=== PATIENT | male | born 1945 | race Caucasian/White ===

== ENCOUNTER 2025-08-05 16:19 | Emergency (ER) | payer OTHER, SELFPAY ==
--- OUTSIDE RECORDS SUMMARY | 2024-03-22 07:15 | XMS_ITS ---
Author Organization [facility] Address [address] [place] [address] Care Team Providers Care Heel Gummer Name Role Phone Sheldon Hansen MD Primary Care Provider Unavail able Jody Leon Unavailable [phone] Vieira Encounters Encounter Location Date Provider Diagnosis [facility] [address] [place] [address] 03/22/2024 Jody Leon Plan Of Treatment Next Appt Details Provider Name:Jody harman, 08/26/2025 11:30:00 AM, [address] [place], [address], Progress Notes * Art OLSON RDOB:1945 (80 yo M)Acc No.[id number]:03/22/2024 Progress Note Patient: Art SANCHEZ Provider: Dar Leon DPM :1945 A ge:78 Y S ex:Male Date:03/22/2024 Address:[address] [place] [address] Pcp:Sheldon Hansen MD Subjective: * Chief Complaints: * [address] Vieira. * Medical History: Objective: * Vitals: Assessment: Plan: * Treatment: * Images: * The named appointment provid er may or may not be the originator of this progress note, and it is not deemed complete until electronically signed by the appointment provider. Sign off status: Pending * Provider: Dar Leon DPM Date: 0 03/22/2024 Generated for Maria Elena sumner/Cristiana/Silvestre on: 1 10/05/2024 05:33 PM EST
--- OUTSIDE RECORDS SUMMARY | 2024-03-29 06:15 | XMS_ITS ---
Author Organization [facility] Address [address] [place] [address] Care Team Providers Care Incinerator Operator Name Role Phone Sheldon Hansen MD Primary Care Provider Unavail able Jody Leon Unavailable [phone] Medications Medication SIG (Take, Route, Frequency, Duration) Notes Start Date End Date Status Ipratropium [place] 0.03 % 2 sprays in e ach nostril Nasally Twice a day; Duration: 30 day(s) 09/19/2023 Active Acetaminophen ER 650 MG 2 tablets as nee ded Orally every 8 hrs 09/19/2023 Active Thera-Gesic 09/19/2023 Active Multivitamin - 1 tablet Orally Once a day; Duration: 30 day(s) 09/19/2023 Active Tamsulosin HCl 0.4 MG Oral; Duration: 90 Days Active Aspirin 81 MG 1 tablet Orally Once a day; Duration: 30 day(s) 09/19/2023 Active Lisinopril 10 MG Oral; Duration: 90 Days Active Omeprazole 20 MG Oral; Duration: 90 Days Active Atorvastatin Calcium 40 MG 1 tablet Oral ly Once a day; Duration: 30 day(s) 09/19/2023 Active Encounters Encounter Location Date Provider Diagnosis [facility] [address] [place] [address] 03/29/2024 Jody Leon Plan Of Treatment Next Appt Details Provider Name:Jody harman, 08/26/2025 11:30:00 AM, [address] [place], [address], Progress Notes * Art OLSON RDOB:1945 (80 yo M)Acc No.[id number]:03/29/2024 Progress Note Patient: Art SANCHEZ Provider: Dar Leon DPM :1945 A ge:79 Y S ex:Male Date:03/29/2024 Address:[address] [place], [place] [id number] Pcp:Sheldon Hansen MD Subjective: * Chief Complaints: * * HPI: P ainful Nails: Pt States Last PCP Visit: D ate: 1 * Medical History: * Medications: T aking Atorvastatin Calcium 40 MG Tablet 1 tablet Orally Once a day , Taking Lisinopril 10 MG Tablet Oral , Taking Omeprazole 20 MG Capsule Delayed Release Oral , Taking Aspirin 81 MG Tablet Chewable 1 tablet Orally Once a day , Taking Multivitamin - Tablet 1 tablet Orally Once a day , Taking Tamsulosin HCl 0.4 MG Capsule Oral , Taking Acetaminophen ER 650 MG Tablet Extended Release 2 tablets as needed Orally every 8 hrs , Taking Thera-Gesic , Taking Ipratropium [place] 0.03 % Solution 2 sprays in each nostril Nasally Twice a day Objective: * Vitals: Assessment: Plan: * Treatment: * Images: * The named appointment provid er may or may not be the originator of this progress note, and it is not deemed complete until electronically signed by the appointment provider. Sign off status: Pending * Provider: Dar Leon DPM Date: 0 03/29/2024 Generated for Maria Elena sumner/Cristiana/Silvestre on: 10/05/2024 05:33 PM EST History and Physical Notes * HPI (History of Present Illness) Category Sub-Category Detail Notes Category Not es Painful Nails Pt States Last PCP Visit: Date:: 07/04/2023
--- OUTSIDE RECORDS SUMMARY | 2024-06-19 08:30 | XMS_ITS ---
Author Organization [facility] Address [address] [place] [address] Care Team Providers Care Prop Attendant Name Role Phone Sheldon Hansen MD Primary Care Provider Unavail Jody Aguilar Unavailable [phone] Encounters Encounter Location Date Provider Diagnosis [address] [address] 06/19/2024 Jody Leon Plan Of Treatment Next Appt Details Provider Name:Jody harman, 08/26/2025 11:30:00 AM, [address] [place] [address], [address], Progress Notes * Art OLSON RDOB:1945 (80 yo M)Acc No.[id number]:06/19/2024 Progress Note Patient: Art SANCHEZ Provider: Dar Leon DPM :1945 A ge:79 Y S ex:Male Date:06/19/2024 Address:[address] [place] [address] Pcp:Sheldon Hansen MD Subjective: * Chief Complaints: * * Medical History: Objective: * Vitals: Assessment: Plan: * Treatment: * Images: * The named appointment provid er may or may not be the originator of this progress note, and it is not deemed complete until electronically signed by the appointment provider. Sign off status: Pending * Provider: Dar Leon DPM Date: 0 06/19/2024 Generated for Maria Elena sumner/Cristiana/Pamransmitting on: 10/05/2024 05:32 PM EST
--- OUTSIDE RECORDS SUMMARY | 2025-05-14 05:00 | XMS_ITS ---
Author Organization [facility] Address [address] [place] [address] Care Team Providers Care Social Media Marketing Analyst Name Role Phone Sheldon Hansen MD Primary Care Provider Unavail able Jody Leon Unavailable [phone] Vieira Encounters Encounter Location Date Provider Diagnosis [facility] [address] [place] [address] 05/14/2025 Jody Leon Plan Of Treatment Next Appt Details Provider Name:Jody harman, 08/26/2025 11:30:00 AM, [address] [place], [address], Progress Notes * Art OLSON RDOB:1945 (80 yo M)Acc No.[id number]:05/14/2025 Progress Note Patient: Art SANCHEZ Provider: Dar Leon DPM :1945 A ge:80 Y S ex:Male Date:05/14/2025 Address:[address] [place] [address] Pcp:Sheldon Hansen MD Subjective: * Chief Complaints: [...] * Provider: Dar Leon DPM Date: 0 05/14/2025 Generated for Maria Elena sumner/Cristiana/Silvestre on: 1 10/05/2024 05:33 PM EST
[2025-08-05 16:28] VITALS: BP 190/103; BP 191/106; PULSE 105; PULSE 93; RESP 17; TEMP 36.7; O2SAT 94; O2SAT 97; BMI 31.7
[2025-08-05 16:47] VITALS: BP 190/103; PULSE 93; RESP 17; TEMP 36.7; O2SAT 97
--- NOTE | 2025-08-05 17:21 | ED_ITS ---
HPI - Male Genitourinary General Chief complaint: Urogenital-Male Stated complaint: urinary retention x 3 days, UTI, HTN 182/110 PR104 Time Seen by Provider: 08/05/25 16:55 Source: patient Mode of arrival: ambulatory Limitations: no limitations History of Present Illness ED Provider: DR. Daniel HPI Narrative: 80-year-old male came in for evaluation of possible urinary retention that is started a week ago patient noticed that he is only dripping and unable to completely empty the bladder. Patient was seen by his urologist last week and was started on Bactrim antibiotic that patient discontinue because he did not feel better. Patient is known to have enlarged prostate. Related Data Allergies Allergy/AdvReac Type Severity Reaction Status Date / Time No Known Allergies Allergy Verified 08/05/25 16:42 Review of Systems 2 Review of Systems: All other systems are reviewed and are negative Constitutional: Reports as per HPI and Reports no additional constitutional complaints Eyes: Reports as per HPI and Reports no additional eye complaints Reports system reviewed and no additional complaints, except as documented Cardiovascular: Reports as per HPI and Reports no additional cardiovascular complaints Respiratory: Reports as per HPI and Reports no additional respiratory complaints Gastrointestinal: Reports as per HPI and Reports no additional gastrointestinal complaints Genitourinary: Reports no additional female genitourinary complaints Musculoskeletal: Reports no additional musculoskeletal complaints Skin/Breast: Reports system reviewed and no additional complaints, except as docu Psychiatric: Reports no additional psychiatric complaints Endocrine: Reports no additional endocrine complaints Hematologic/Lymphatic: Reports no additional hematologic/lymphatic complaints Allergic/Immunologic: Reports no additional allergic/immunologic complaints Reports system reviewed and no additional complaints, except as documented and Reports Abnormal speech present [facility] Social History Social History Advance Directives: No Advance Directives Information Provided: Yes Do you have a plan to hurt others: No Plan Physical Exam 2 Vital Signs: Vital Signs: Last Vital Signs Temp 98.6 F 08/05/25 19:30 Pulse 93 08/05/25 19:30 Resp 20 08/05/25 19:30 BP 136/72 08/05/25 19:30 Pulse Ox 92 08/05/25 19:30 O2 Del Method Room Air 08/05/25 19:30 BMI result Body Mass Index 31.7 Vital signs have been reviewed and appear to be correct. Blood pressure elevated. Heart rate normal. Respiratory rate normal. Temperature normal. Oxygen saturation normal. Appearance: Alert. Oriented X3. No acute distress. Head: Normal external exam. Normocephalic. Atraumatic. No Woo signs noted. No raccoon eyes noted Eyes: PERRLA. EOMI. Conjunctiva and sclera normal. Eyelids normal. ENT: TM's Normal. Pharynx normal. Uvula midline. Moist mucous membranes. No trismus noted. No drooling noted. No muffled voice noted. Neck: Normal inspection. Neck supple. FROM. No adenopathy. Thyroid Normal. No meningeal signs. No neck mass noted. CVS: Normal heart rate and rhythm. Heart sound normal. No murmurs noted. Pulses normal throughout. Respiratory: No respiratory distress. Painless inspiration. Breath sounds normal. No wheezes/rales/rhonchi noted. Chest nontender. No accessory muscle usage noted or decreased air movement noted. Abdomen: Soft and nontender. Bowel sounds normal in all 4 quadrants. No distention noted. No organomegaly noted. No visible injury noted. Back: No CVA tenderness. Full range of motion noted. Skin: Skin warm and dry. Normal skin color. Normal skin turgor. No rashes/lesions/lacerations noted. Extremities: No lower extremity edema. Extremities exhibit normal range of motion. Extremities nontender. Neuro: Oriented X 3. Cranial nerve exam: II-XII are grossly intact No motor deficit. No sensory deficit. Reflexes normal. Course Reevaluation(s) Reevaluation #1: 80-year-old male came in for urinary retention, 1600 cc of clear urine was drained in the Griffin, mild UTI patient is already on Ceftin prescribed by his urologist was instructed to finish the course and drink plenty of fluids. Time: 20:01 Medications Administered Discontinued Medications Generic Name Dose Route Start Last Admin Trade Name Freq PRN Reason Stop Dose Admin Lorazepam 1 mg 08/05/25 17:06 08/05/25 17:12 Lorazepam 1 Mg Tablet PO 08/05/25 17:07 1 mg ONCE ONE Administration Medical Decision Making Differential Diagnosis Differential Diagnoses: The differential diagnosis associated with the presentation includes (UTI, pyelonephritis, obstructive bladder outlet, prostate enlargement, ESTEPHANIA, electrolyte derangement, severe anemia.) Admission/Observation Consideration of admission/observation: Escalation of care including admission/observation considered Lab Data MDM Lab Attestation statement: I reviewed the patient's lab results. 08/05/25 17:21 08/05/25 17:21 Labs: Lab Results 08/05/25 08/05/25 Range/Units 17:21 17:41 WBC 6.6 (4.8-10.8) X10*3/uL RBC 4.38 L (4.60-5.80) X10*6/uL Hgb 14.4 (14.0-18.0) g/dl Hct 41.6 L (42.0-52.0) % MCV 95.0 (80.0-98.0) fL MCH 32.9 (27.0-33.0) pg MCHC 34.6 (31.0-36.0) g/dl RDW 13.2 (11.0-16.0) % Plt Count 248 (160-400) X10*3/uL MPV 9.4 (9.4-12.4) fL Immature Gran % (Auto) 0.3 (0.0-0.4) % Neut % (Auto) 63.1 (45-73) % Lymph % (Auto) 21.4 (20-40) % Kern % (Auto) 13.2 H (2-11) % Eos % (Auto) 1.5 (0-4) % Baso % (Auto) 0.5 (0-2) % Lymph # (Auto) 1.4 (1.2-4.9) X10*3/uL Kern # (Auto) 0.9 (0.1-1.2) X10*3/uL Eos # (Auto) 0.1 (0.0-0.4) X10*3/uL Baso # (Auto) 0.0 (0.0-0.2) X10*3/uL Abs Immat Gran (auto) 0.02 (0.00-0.03) X10*3/uL Absolute Neuts (auto) 4.2 (2.0-8.3) x10*3/uL Absolute Nucleated RBC 0.000 (0.0-0.012) X10*3/uL Nucleated RBC % (auto) 0.0 (0.0-0.2) /100WBC Sodium 137 (135-145) mmol/L Potassium 4.0 (3.3-5.1) mmol/L Chloride 104 (96-108) mmol/L Carbon Dioxide 23 (22-29) mmol/L Anion Gap 14 (12-20) BUN 18 H (9-16) mg/dL Creatinine 1.01 (0.5-1.4) mg/dL Estim Creat Clear Calc 62.9 Estimated GFR > 60 Random Glucose 107 (60-115) mg/dL Calcium 10.1 (8.4-10.2) mg/dL Total Bilirubin 0.7 (0.0-1.0) mg/dL Direct Bilirubin 0.3 (0.0-0.5) mg/dL AST 46 H (5-37) U/L ALT 49 H (0-40) U/L Alkaline Phosphatase 99 (39-117) U/L Total Protein 7.2 (6.5-8.0) g/dL Albumin 4.2 (3.5-5.0) g/dL Lipase 35 (8-78) U/L Urine Color Yellow Urine Appearance Clear Urine pH 6.0 (5.0-9.0) Ur Specific [place] 1.015 (1.005-1.025) Urine Protein Negative (Neg-Trace) mg/dL Urine Glucose (UA) Negative (Negative) mg/dL Urine Ketones Negative (Negative) mg/dL Urine Blood Small (1+) H (Negative) Urine Nitrite Negative (Negative) Ur Leukocyte Esterase Small (1+) H (Negative) Urine RBC 11-20 H (0-2) /HPF Urine WBC 6-10 H (0-5) /HPF Ur Squamous Epith Cells 0-2 (0-2) /HPF Urine Bacteria None Seen (None Seen) Hyaline Casts 0-2 (0-2) /LPF Discharge Plan Discharge Clinical Impression: Urinary tract infection, Acute retention of urine Patient Disposition: Home, Self-Care Instructions: Griffin Catheter Care Additional Instructions: Drink plenty of fluids. Finish the course of antibiotic. Make an appointment with your urologist. Any problem with the Griffin catheter police returned back. Print Language: Latvian
[2025-08-05 17:26] LABS: MANUAL DIFF FLAG NO
[2025-08-05 17:29] LABS: Hematocrit 41.6 % (42.0-52.0); Hemoglobin 14.4 g/dl (14.0-18.0); Imm Gran Abs Auto 0.02 X10*3/uL (0.00-0.03); Imm Gran Pct Auto 0.3 % (0.0-0.4); Lymphocytes Absolute Auto 1.4 X10*3/uL (1.2-4.9); Mean Corpuscular HGB Conc 34.6 g/dl (31.0-36.0); Mean Corpuscular Hemoglobin 32.9 pg (27.0-33.0); Mean Corpuscular Volume 95.0 fL (80.0-98.0); NRBC Abs Auto 0.000 X10*3/uL (0.0-0.012); NRBC Pct Auto 0.0 /100WBC (0.0-0.2); Platelet Count 248 X10*3/uL (160-400); Red Blood Count 4.38 X10*6/uL (4.60-5.80); White Blood Count 6.6 X10*3/uL (4.8-10.8)
--- OUTSIDE RECORDS SUMMARY | 2025-08-05 17:33 | XMS_ITS | Clinical Summary ---
Author Organization [facility] Address [address] [address] Phone Care Team Providers Care Reduction Furnace Operator Name Role Phone Sheldon Hansen MD Primary Care Provider + [phone] Allergies No known active allergies Medications amLODIPine (NORVASC) 10 MG tablet Take 10 mg by mouth daily. Active atorvastatin (LIPITOR) 40 MG tablet Take 40 mg by mouth daily. Active raNITIdine (ZANTAC) 150 MG tablet Take 150 mg by mouth 2 (two) times a day. Active aspirin 81 MG EC tablet Take 81 mg by mouth daily. Active therapeutic multivitamin tablet Take 1 tablet by mouth daily. Active tamsulosin (FLOMAX) 0.4 mg Cp24 Take 0.4 mg by mouth daily. Active Social History Tobacco Use Types Packs/Day Years Used Date Smoking Tobacco: Never Assessed Education Answer Date Recorded Are you interested in more education? Not on gayathri e 01/20/2023 Are you concerned about learning? Not on file 01/20/2023 No 01/20/2023 No 01/20/2023 Digital Access Answer Date Recorded No 02/20/2023 No 02/20/2023 Reliable internet access at home? Not on file 02/20/2023 Device with a working camera? Not on file Sex and Gender Information Value Date Recorded Sex Assigned at Not on file Legal Sex Male 6:43 AM EST Gender Identity Not on file Sexual Orientation Not on file Last Filed Vital Signs Vital Sign Reading Time Taken Comments Blood Pressure - - Pulse - - Temperature - - Respiratory Rate - - Oxygen Saturation - - Inhaled Oxygen Concentration - - Weight 88.5 kg (195 lb) 12/22/2017 2:42 PM EDT Height 175.3 cm (5' 9 ) 12/22/2017 2:42 PM EDT Body Mass Index 28.8 12/22/2017 2:42 PM EDT Plan of Treatment Health Maintenance Due Date Last Done Comments Adult Td,Tdap Booster 1945 DEPRESSION SCREENING 1955 PNEUMOCOCCAL VACCINES (50+ years) (1 of 1 - PCV) 1993 ZOSTER VACCINES (1 of 2) 1993 RSV VACCINE (1 - 1-dose 75+ series) 2018 INFLUENZA VACCINE (#1) 2025 8, 09/05/2017 COVID-19 VACCINE (3 - 2024-2 6 season) 2025 11/30/2020, 11/09/2020 HEPATITIS A VACCINES Aged Out No long er eligible based on patient's age to complete this topic HIB VACCINES Aged Out No longer eligi ble based on patient's age to complete this topic IPV VACCINES Aged Out No longer eligi ble based on patient's age to complete this topic MENINGOCOCCAL VACCINES (ACWY) Aged Out No longer eligible based on patient's age to complete this topic MENINGOCOCCAL VACCINES (B) Aged Out N o longer eligible based on patient's age to complete this topic Medical Devices Not on file Insurance [employer] MEDICARE SUPPLEMENT MEDICARE PART A & B FOR LIFE MEDICARE SUPPLEMENT MEDICARE PART A & B FOR LIFE MEDICARE SUPPLEMENT MEDICARE PART A & B FOR LIFE MEDICARE SUPPLEMENT MEDICARE PART A & B FOR LIFE MEDICARE SUPPLEMENT Member Subscriber Plan / Payer (Ef fective 2008-) Name:Art Holbrook Relation to Subscriber:Self Name:Art Holbrook Payer ID:[id number] (NAIC) Group ID:Not on file Type:O Address: [place] [id number] MEDICARE PART A & B FOR LIFE MEDICARE SUPPLEMENT MEDICARE PART A & B FOR LIFE MEDICARE SUPPLEMENT MEDICARE PART A & B FOR LIFE MEDICARE SUPPLEMENT MEDICARE PART A & B FOR LIFE MEDICARE SUPPLEMENT MEDICARE PART A & B Care Teams Reduction Furnace Operator Relationship Specialty Start Date End Date Sheldon Hansen MD [address] [place] [address] PCP - General Internal Medicine 12/05/17 Additional Source Comments The information contained in this document represents components of the legal health record. It is not the complete legal health record.[facility]
--- OUTSIDE RECORDS SUMMARY | 2025-08-05 17:33 | XMS_ITS | Patient Health Record ---
Author Organization [facility] Address [address] [place] [address] Care Team Providers Care Social Work Professor Name Role Phone Sheldon Hansen MD Primary Care Provider Unavail able Marcokimani Jody Unavailable [phone] Allergies No Known Allergies Reason For Referral No Information Medications Medication SIG (Take, Route, Frequency, Duration) Notes Start Date End Date Status Ipratropium [place] 0.03 % 2 sprays in e ach nostril Nasally Twice a day; Duration: 30 day(s) 09/19/2023 Active Thera-Gesic 09/19/2023 Active Acetaminophen ER 650 MG 2 tablets as nee ded Orally every 8 hrs 09/19/2023 Active Tamsulosin HCl 0.4 MG Oral; Duration: 90 Days x2 Active Multivitamin - 1 tablet Orally Once a day; Duration: 30 day(s) 09/19/2023 Active Aspirin 81 MG 1 tablet Orally Once a day; Duration: 30 day(s) 09/19/2023 Active Omeprazole 20 MG Oral; Duration: 90 Days Active Lisinopril 10 MG Oral; Duration: 90 Days Active Atorvastatin Calcium 40 MG 1 tablet Oral ly Once a day; Duration: 30 day(s) 09/19/2023 Active Immunizations Vaccine Route Administration Date Status Comme nts Influenza Unknown 07/17/2024 Administered Social History Tobacco Use: Social History Observation Description Date Details (start date - stop date) Never Smoker NA - NA Alcohol Screen Question Answer Notes Did you have a drink contain ing alcohol in the past year? Yes How often did you have a dri nk containing alcohol in the past year? Monthly or less (1 point) Points 1 Interpretation Negative Tobacco use other than smoking: Question Answer Notes Are you an other tobacco user? No Tobacco Control (Standard) Question Answer Notes Tobacco use: Nonsmoker Additional Findings: Tobacco non-user Current no nsmoker AUDIT-C (Standard) Question Answer Notes Did you have a drink containing alcohol in the p ast year? 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 ; Pain in right toe(s) M79.674 ; Pain in left toe(s) M79.675 ; Osteoarthritis of midtarsal joint of right foot M19.071 ; Other hammer toe(s) (acquired), right foot M20.41 ; Other hammer toe(s) (acquired), left foot M20.42 ; Hallux rigidus, right foot M20.21 and Hallux rigidus, left foot M20.[address] [address] 02/12/2025 Jody Perica Pain in right toe(s) M79.674 ; Onychomycosis B35.1 and Pain in left toe(s) M79.[address] [address] 05/23/2025 Jody Perica Pain in right toe(s) M79.674 ; Onychomycosis B35.1 and Pain in left toe(s) M79.675 Assessments Encounter Date Diagnosis (ICD Code) Assessment Notes Treatment Notes Treatment Clinical Notes Section Notes 08/16/2024 Tinea unguium (ICD-10 - B35.1) 08/16/2024 Pain in right toe(s) (ICD-10 - M79.674) 11/01/2024 Tinea unguium (ICD-10 - B35.1) 11/01/2024 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) 02/12/2025 Pain in right toe(s) (ICD-10 - M79.674) 05/23/2025 Pain in right toe(s) (ICD-10 - M79.674) 05/23/2025 Onychomycosis (ICD-10 - B35.1) 02/12/2025 Onychomycosis (ICD-10 - B35.1) 11/01/2024 Pain in right toe(s) (ICD-10 - M79.674) 08/16/2024 Pain in left toe(s) (ICD-10 - M79.675) 11/01/2024 Pain in left toe(s) (ICD-10 - M79.675) 02/12/2025 Pain in left toe(s) (ICD-10 - M79.675) 05/23/2025 Pain in left toe(s) (ICD-10 - M79.675) 11/01/2024 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) 11/01/2024 Other hammer toe(s) (acquired), right foot (ICD-10 - M20.41) 11/01/2024 Other hammer toe(s) (acquired), left foot (ICD-10 - M20.42) 11/01/2024 Hallux rigidus, right foot (ICD-10 - M20.21) 11/01/2024 Hallux rigidus, left foot (ICD-10 - M20.22) Plan Of Treatment Next Appt Details Provider Name:Jody harman, 08/26/2025 11:30:00 AM, [address] [place] [address], [phone], Insurance Providers Payer Name Payer Address Payer Phone Subscriber Number Group Number Insured Name Patient Relationship to Insured Coverage Start Date Coverage End Date Medicare [employer] [address] [place] [address] [id number] Art Holbrook Self - patient is the insured for Life [address] [place] [id number] Art Holbrook Self - patient is the insured Medical (General) History Medical History History ICD Code Arthritis covid-19 High blood pressure Macular degeneration- B/L - loss of visi on in the right eye sinusitis Measles Mumps Chicken pox Surgical History Surgery Date(Month/Year) carotid endarterectomy dupuytren's contracture cataract surgery 02/11/25
--- OUTSIDE RECORDS SUMMARY | 2025-08-05 17:33 | XMS_ITS | Encounter Summary ---
Author Organization [facility] Address [address] [place] [address] Care Team Providers Care Sweat Band Sewer Name Role Phone Sheldon Hansen MD Primary Care Provider [phone] Encounter Details Date Type Department Care Team (Late st Contact Info) Description 08/01/2025 Lab Requisition [facility] - Main Lab [address] [facility] [place] [address] Denzel Parish PA [address] [place] [address] Urinary tract infection, site not specified Social History Tobacco Use Types Packs/Day Years Used Date Smoking Tobacco: Never Assessed Sex and Gender Information Value Date Recorded Sex Assigned at Not on file Legal Sex Male 10:01 AM EST Gender Identity Not on file Sexual Orientation Not on file documented as of this encounter Plan of Treatment Not on file documented as of this encounter Procedures Procedure Name Priority Date/Time Associated Diagnosis Comments CULTURE URINE Routine 08/01/2025 12:00 AM EST Urinary tract infection, site not specified documented in this encounter Results * (ABNORMAL) Culture urine (08/01/2025 12:00 AM EST) Culture, Urine >=100,000 CFU/mL Escherichia coli(A) JAZMYN 08/03/2025 10:51 AM EST [facility] Urine Urine specimen obtained by clean catch procedure / Unknown Non-blood Collection / Unknown 08/01/2025 08/01/2025 2:27 PM EST Narrative Organism Antibiotic Method Susceptibility Escherichia coli Amoxicillin/Clavulanate JAZMYN 8 ug/ml: Susceptible Escherichia coli Ampicillin/Sulbactam JAZMYN 16 ug/ml: Intermediate Escherichia coli Piperacillin/Tazobactam JAZMYN <=4 ug/ml: Susceptible Escherichia coli Cefazolin (Urine) JAZMYN 4 ug/ml: Susceptible Escherichia coli Cefoxitin JAZMYN <=4 ug/ml: Susceptible Escherichia coli Ceftazidime JAZMYN <=0.5 ug/ml: Susceptible Escherichia coli Ceftriaxone JAZMYN <=0.25 ug/ml: Susceptible Escherichia coli Cefepime JAZMYN <=0.12 ug/ml: Susceptible Escherichia coli Meropenem JAZMYN <=0.25 ug/ml: Susceptible Escherichia coli Amikacin JAZMYN 2 ug/ml: Susceptible Escherichia coli Gentamicin JAZMYN <=1 ug/ml: Susceptible Escherichia coli Ciprofloxacin JAZMYN 0.5 ug/ml: Intermediate Escherichia coli Levofloxacin JAZMYN 1 ug/ml: Intermediate Escherichia coli Nitrofurantoin JAZMYN <=16 ug/ml: Susceptible Escherichia coli Trimethoprim/Sulfamethoxazole JAZMYN <=20 ug/ml: Susceptible us [facility] MICROBIOLOGY - GENERAL O RDERABLES Final Result [facility] [address] [place] [address], documented in this encounter Visit Diagnoses Diagnosis Urinary tract infection, site not specified documented in this encounter Care Teams Sweat Band Sewer Relationship Specialty Start Date End Date Sheldon Hansen MD [address] [place] [id number] PCP - General Internal Medicine 08/01/25 documented as of this encounter
--- OUTSIDE RECORDS SUMMARY | 2025-08-05 17:33 | XMS_ITS | Clinical Summary ---
Author Organization [facility] Address [address] [place] [phone] Phone Care Team Providers Care Quenching Machine Operator Name Role Phone Sheldon Hansen MD Primary Care Provider [phone] Encounters Date Type Department Care Team Description 08/01/2025 Lab Requisition [facility] - Main Lab [address] [facility] [place] [address] Denzel Parish PA Urinary tract infection, site not specified from Last 3 Months Surgical History Surgery Date Site/Laterality Comments CAROTID ARTERY ANGIOPLASTY PROCEDURE:CAROTID ARTERY ANGIOPLASTY Medical History Medical History Date Comments Hypertension DX:Hypertension Stroke ([facility] V24, [facility] V28) DX:Stroke ([facility]) Osteoporosis DX:Osteoporosis Social History Tobacco Use Types Packs/Day Years Used Date Smoking Tobacco: Never Assessed Sex and Gender Information Value Date Recorded Sex Assigned at Not on file Legal Sex Male 10:01 AM EST Gender Identity Not on file Sexual Orientation Not on file Obstetrics History Plan of Treatment Health Maintenance Due Date Last Done Comments DTaP,Tdap,and Td Vaccines (1 - Tdap) 1962 Pneumococcal Vaccine: 50+ Ye ars (1 of 1 - PCV) 1993 Zoster Vaccines (1 of 2) 1993 RSV Immunization Adult Patie nts (1 - 1-dose 75+ series) 2018 Cholesterol Screening (Lipid Panel) 08/28/2022 Falls Risk Assessment 08/28/2022 Medicare Annual Wellness Visit 08/28/2022 Social Influencers of Health Screening 08/28/2022 Depression Screening 09/25/2024 COVID-19 Vaccine (1 - 2024-2 6 season) 2025 Influenza Vaccine (#1) 2025 HIB Vaccines Aged Out No longer eligi ble based on patient's age to complete this topic HPV Vaccines Aged Out No longer eligi ble based on patient's age to complete this topic Hepatitis A Vaccines Aged Out No long er eligible based on patient's age to complete this topic Hepatitis B Vaccines Aged Out No long er eligible based on patient's age to complete this topic IPV Vaccines Aged Out No longer eligi ble based on patient's age to complete this topic MMR Vaccines Aged Out No longer eligi ble based on patient's age to complete this topic Meningococcal ACWY Vaccine Aged Out N o longer eligible based on patient's age to complete this topic Meningococcal B Vaccine Aged Out No l onger eligible based on patient's age to complete this topic RSV Immunization Patients Un geoffrey 20 months Aged Out No longer eligible b ased on patient's age to complete this topic Varicella Vaccines Aged Out No longer eligible based on patient's age to complete this topic Procedures Procedure Name Priority Date/Time Associated Diagnosis Comments CULTURE URINE Routine 08/01/2025 12:00 AM EST Urinary tract infection, site not specified from Last 3 Months Results * (ABNORMAL) Culture urine (08/01/2025 12:00 AM EST) Culture, Urine >=100,000 CFU/mL Escherichia coli(A) JAZMYN 08/03/2025 10:51 AM EST [facility] Urine Urine specimen obtained by clean [...] Escherichia coli Trimethoprim/Sulfamethoxazole JAZMYN <=20 ug/ml: Susceptible [facility] MICROBIOLOGY - GENERAL O RDERABLES Final Result [facility] [address] [place] [address], [place] [phone] from Last 3 Months Insurance MEDICARE Advance Directives Documents on File Type Date Recorded 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
--- OUTSIDE RECORDS SUMMARY | 2025-08-05 17:33 | XMS_ITS | Encounter Summary ---
Author Organization [facility] Address [email or web address] [place] [phone] Phone Care Team Providers Care Manufacturing Manager Name Role Phone Sheldon Hansen MD Primary Care Provider [phone] Encounter Details Date Type Department Care Team (Late st Contact Info) Description 12/08/[address] [facility] [address] [place] [address] Social History Tobacco Use Types Packs/Day Years Used Date Smoking Tobacco: Never Assessed Sex and Gender Information Value Date Recorded Sex Assigned at Not on file Legal Sex Male 6:43 AM EST Gender Identity Not on file Sexual Orientation Not on file documented as of this encounter Plan of Treatment Not on file documented as of this encounter Visit Diagnoses Not on filedocumented in this encounter Care Teams Manufacturing Manager Relationship Specialty Start Date End Date Sheldon Hansen MD [address] [place] [address] PCP - General Internal Medicine 12/05/17 documented as of this encounter Additional Source Comments The information contained in this document represents components of the legal health record. It is not the complete legal health record.[facility]
[2025-08-05 17:39] LABS: Alanine Aminotransferase 49 U/L (0-40); Albumin Level 4.2 g/dL (3.5-5.0); Alkaline Phosphatase 99 U/L (39-117); Anion Gap 14 (12-20); Aspartate Amino Transferase 46 U/L (5-37); Blood Urea Nitrogen 18 mg/dL (9-16); Calcium 10.1 mg/dL (8.4-10.2); Carbon Dioxide 23 mmol/L (22-29); Chloride 104 mmol/L (96-108); Creatinine Clr Calc Pharmacy 62.9; Estimated Glomerular Filt Rate > 60; Lipase 35 U/L (8-78); Potassium 4.0 mmol/L (3.3-5.1); Sodium 137 mmol/L (135-145); Total Protein 7.2 g/dL (6.5-8.0)
[2025-08-05 17:50] LABS: Appearance Urine Clear; Glucose Urine UA Negative (Negative); PH 6.0 (5.0-9.0); Specific Gravity - Urine 1.015 (1.005-1.025); UMIC TRIGGER UACC YES
[2025-08-05 18:20] LABS: UACC Culture Trigger YES
[2025-08-05 19:30] VITALS: BP 136/72; PULSE 93; RESP 20; TEMP 37; O2SAT 92
[2025-08-05 20:33] VITALS: BP 148/81; PULSE 90; RESP 14; TEMP 37; O2SAT 93
== END 2025-08-05 20:38 | disposition home or self-care (01) ==
PROVIDERS: Emergency Provider Emergency Medicine
DX: N39.0 Urinary tract infection, site not specified (principal); R33.9 Retention of urine, unspecified; I10 Essential (primary) hypertension; Z96.0 Presence of urogenital implants
CPT/HCPCS: 36415; 51702; 80048; 80076; 81001; 83690; 85025; 87086; 99283; 99285